=== PATIENT | female | born 1950 | race Caucasian/White ===

== ENCOUNTER → 2016-12-27 | Outpatient (CLI) | payer OTHER ==
[2016-02-29 10:56] VITALS: BP 134/66
[~2016-12-27] MED LIST: PREMPRO 0.625/21 TAB PO
== END ==
LOC: MAMMO 10:00
DX: Z12.31 Encounter for screening mammogram for malignant neoplasm of breast (principal); Z01.419 Encounter for gynecological examination (general) (routine) without abnormal findings
CPT/HCPCS: G0202

== ENCOUNTER → 2017-04-17 | Outpatient (CLI) | payer OTHER ==
[2016-02-29 10:56] VITALS: BP 134/66
== END ==
LOC: LAB 14:21
DX: E78.5 Hyperlipidemia, unspecified (principal)

== ENCOUNTER → 2017-05-22 | Outpatient (CLI) | payer OTHER ==
[~2017-05-22] VITALS: Ht 167.6 cm; Wt 58.2 kg
[~2017-05-22] MED LIST changes: +MULTI-VITAMIN1 EACH PO; +PHARMASSURE V500 MCG PO; +VITAMIN D32000 UNIT PO
[2017-05-22 13:36] VITALS: BP 122/64
[2017-05-22 14:21] VITALS: BP 130/74
== END ==
LOC: AMSURD 11:28
DX: M81.0 Age-related osteoporosis without current pathological fracture (principal)
CPT/HCPCS: J3489

== ENCOUNTER → 2017-12-27 | Outpatient (CLI) | payer OTHER ==
[2017-05-22 14:21] VITALS: BP 130/74
[2017-12-27 15:27] LABS: ALBUMIN 4.2 g/dL (3.5-5.0); BUN/CREATININE RATIO 16.3 (6.0-26.0); CALCIUM 8.9 mg/dL (8.4-10.2); POTASSIUM 3.7 mmol/L (3.6-5.0); TOTAL BILIRUBIN 0.3 mg/dL (0.2-1.3); TOTAL PROTEIN 7.7 g/dL (6.3-8.2)
== END ==
LOC: LAB 14:30
PROVIDERS: Family Medicine
DX: Z00.00 Encounter for general adult medical examination without abnormal findings (principal); M81.0 Age-related osteoporosis without current pathological fracture; R53.83 Other fatigue; R50.9 Fever, unspecified

== ENCOUNTER → 2018-01-29 | Day surgery (SDC) | payer OTHER ==
[2017-05-22 14:21] VITALS: BP 130/74
== END ==
LOC: MSO 08:46
DX: K29.50 Unspecified chronic gastritis without bleeding (principal); K29.80 Duodenitis without bleeding; R19.7 Diarrhea, unspecified; Z86.010 Personal history of colon polyps; Z80.0 Family history of malignant neoplasm of digestive organs; F17.210 Nicotine dependence, cigarettes, uncomplicated; F41.9 Anxiety disorder, unspecified; F32.9 Major depressive disorder, single episode, unspecified; Z79.899 Other long term (current) drug therapy
CPT/HCPCS: 00813; A4649; J2704; J3010; J7120

== ENCOUNTER → 2018-01-31 | Outpatient (CLI) | payer OTHER ==
[2017-05-22 14:21] VITALS: BP 130/74
== END ==
LOC: MAMMO 01-17 10:00
DX: Z12.31 Encounter for screening mammogram for malignant neoplasm of breast (principal)

== ENCOUNTER → 2018-04-13 | Outpatient (CLI) | payer OTHER ==
[2017-05-22 14:21] VITALS: BP 130/74
== END ==
LOC: LAB 10:53
DX: N76.0 Acute vaginitis (principal)

== ENCOUNTER → 2018-06-07 | Outpatient (CLI) | payer OTHER ==
[~2018-06-07] VITALS: Ht 167.6 cm; Wt 52.3 kg
[2018-06-07 16:17] VITALS: BP 137/49
[2018-06-07 17:04] VITALS: BP 146/72
== END ==
LOC: AMSURD 15:56
DX: M81.0 Age-related osteoporosis without current pathological fracture (principal); M85.80 Other specified disorders of bone density and structure, unspecified site
CPT/HCPCS: J3489

== ENCOUNTER → 2018-12-10 | Outpatient (CLI) | payer OTHER ==
[2018-06-07 17:04] VITALS: BP 146/72
[2018-12-10 14:59] LABS: EOS % 0.4 % (1.0-5.0); HEMATOCRIT 39.1 % (37.0-47.0); HEMOGLOBIN 12.7 g/dL (12.5-16.0); LYMPH# 1.8 (1.50-4.00); MEAN CELL VOLUME 92 fl (78-100); MEAN CORPUSCULAR HEMOGLOBIN 30 pg (27-31); MEAN CORPUSCULAR HGB CONC 33 g/dL (33-37); MEAN PLATELET VOLUME 10.5 fl (7.4-10.4); MONO # 0.4 (0.20-0.80); NEU # 3.3 (1.40-6.50); PLATELET COUNT 180 K/mm3 (130-400); RED BLOOD COUNT 4.27 M/mm3 (4.10-5.30); RED CELL DISTRIBUTION WIDTH 13.6 % (11.5-14.5); WHITE BLOOD COUNT 5.6 K/mm3 (4.8-10.8)
[2018-12-10 15:09] LABS: ALBUMIN 3.8 g/dL (3.4-4.8); CALCIUM 9.3 mg/dL (8.3-10.5); TOTAL BILIRUBIN 0.3 mg/dL (0.2-1.2); TOTAL PROTEIN 6.3 g/dL (6.2-8.1)
== END ==
LOC: LAB 14:37
PROVIDERS: Family Medicine
DX: Z01.419 Encounter for gynecological examination (general) (routine) without abnormal findings (principal); E55.9 Vitamin D deficiency, unspecified; R53.83 Other fatigue

== ENCOUNTER → 2019-06-07 | Outpatient (CLI) | payer MEDICARE, OTHER ==
[~2019-06-07] VITALS: Ht 165.1 cm; Wt 49.8 kg
[~2019-06-07] MED LIST changes: +ALPRAZOLAM0.25 MG PO; +AMBIEN5 M1 PO; +CURCUMIN95%; +FISH OIL1 IU PO; +NATURE'S BLEND500 M5 PO; +ZOFRAN ODT4 MG PO
[2019-06-07 13:35] VITALS: BP 124/57
== END ==
LOC: AMSURD 13:08
DX: M81.0 Age-related osteoporosis without current pathological fracture (principal)
CPT/HCPCS: J3489

== ENCOUNTER → 2019-06-25 | Outpatient (CLI) | payer MEDICARE, OTHER ==
[2019-06-07 13:35] VITALS: BP 124/57
== END ==
LOC: RAD 10:58
DX: M50.30 Other cervical disc degeneration, unspecified cervical region (principal); R42 Dizziness and giddiness

== ENCOUNTER → 2020-01-06 | Outpatient (CLI) | payer MEDICARE, OTHER ==
[2019-06-07 13:35] VITALS: BP 124/57
[2020-01-06 16:43] LABS: EOS # 0.1 (0.04-0.40); EOS % 1.4 % (1.0-5.0); HEMATOCRIT 39.1 % (37.0-47.0); HEMOGLOBIN 12.7 g/dL (12.5-16.0); MEAN CELL VOLUME 92 fl (78-100); MEAN CORPUSCULAR HEMOGLOBIN 30 pg (27-31); MEAN CORPUSCULAR HGB CONC 33 g/dL (33-37); MEAN PLATELET VOLUME 9.9 fl (7.4-10.4); MONO # 0.6 (0.20-0.80); PLATELET COUNT 215 K/mm3 (130-400); RED BLOOD COUNT 4.23 M/mm3 (4.10-5.30); RED CELL DISTRIBUTION WIDTH 14.5 % (11.5-14.5); WHITE BLOOD COUNT 5.7 K/mm3 (4.8-10.8)
[2020-01-06 16:50] LABS: POTASSIUM 4.5 mmol/L (3.5-5.1)
[2020-01-06 16:53] LABS: TOTAL PROTEIN 6.9 g/dL (6.2-8.1)
[2020-01-06 16:55] LABS: TOTAL BILIRUBIN 0.2 mg/dL (0.2-1.2)
== END ==
LOC: LAB 16:29
PROVIDERS: Family Medicine
DX: Z00.00 Encounter for general adult medical examination without abnormal findings (principal); E78.2 Mixed hyperlipidemia; E55.9 Vitamin D deficiency, unspecified

== ENCOUNTER → 2020-01-07 | Outpatient (CLI) | payer MEDICARE, OTHER ==
[2019-06-07 13:35] VITALS: BP 124/57
== END ==
LOC: MAMMO 10:44
DX: Z12.31 Encounter for screening mammogram for malignant neoplasm of breast (principal)

== ENCOUNTER → 2020-02-05 | Outpatient (CLI) | payer MEDICARE, OTHER ==
[2019-06-07 13:35] VITALS: BP 124/57
== END ==
LOC: LAB 11:18
DX: N39.0 Urinary tract infection, site not specified (principal)

== ENCOUNTER → 2020-02-14 | Outpatient (CLI) | payer MEDICARE, OTHER ==
[2019-06-07 13:35] VITALS: BP 124/57
[2020-02-14 15:42] LABS: HEMATOCRIT 40.8 % (37.0-47.0); HEMOGLOBIN 13.5 g/dL (12.5-16.0); MEAN PLATELET VOLUME 9.7 fl (7.4-10.4); RED BLOOD COUNT 4.41 M/mm3 (4.10-5.30); RED CELL DISTRIBUTION WIDTH 13.8 % (11.5-14.5); WHITE BLOOD COUNT 7.3 K/mm3 (4.8-10.8)
[2020-02-14 15:51] LABS: POTASSIUM 4.1 mmol/L (3.5-5.1)
[2020-02-14 15:53] LABS: CALCIUM 9.5 mg/dL (8.3-10.5)
== END ==
LOC: LAB 15:30
PROVIDERS: Podiatrist Sports Medicine
DX: G57.61 Lesion of plantar nerve, right lower limb (principal); M79.671 Pain in right foot

== ENCOUNTER → 2020-08-03 | Outpatient (CLI) | payer MEDICARE ==
[2019-06-07 13:35] VITALS: BP 124/57
[2020-08-03 14:50] LABS: EOS % 0.4 % (1.0-5.0); HEMATOCRIT 42.1 % (37.0-47.0); HEMOGLOBIN 13.5 g/dL (12.5-16.0); LYMPH# 1.9 (1.50-4.00); MEAN CELL VOLUME 92 fl (78-100); MEAN CORPUSCULAR HEMOGLOBIN 29 pg (27-31); MEAN CORPUSCULAR HGB CONC 32 g/dL (33-37); MONO # 0.6 (0.20-0.80); NEU # 4.9 (1.40-6.50); PLATELET COUNT 289 K/mm3 (130-400); RED BLOOD COUNT 4.59 M/mm3 (4.10-5.30); RED CELL DISTRIBUTION WIDTH 13.7 % (11.5-14.5); WHITE BLOOD COUNT 7.4 K/mm3 (4.8-10.8)
[2020-08-03 15:01] LABS: ALBUMIN 4.1 g/dL (3.4-4.8); POTASSIUM 4.7 mmol/L (3.5-5.1)
[2020-08-03 15:02] LABS: CALCIUM 9.3 mg/dL (8.3-10.5)
[2020-08-03 15:04] LABS: TOTAL PROTEIN 7.5 g/dL (6.2-8.1)
[2020-08-03 15:06] LABS: TOTAL BILIRUBIN 0.3 mg/dL (0.2-1.2)
== END ==
LOC: LAB 14:17
PROVIDERS: Family Medicine
DX: Z00.00 Encounter for general adult medical examination without abnormal findings (principal); E78.5 Hyperlipidemia, unspecified; M81.0 Age-related osteoporosis without current pathological fracture; G64 Other disorders of peripheral nervous system

== ENCOUNTER → 2020-08-12 | Outpatient (CLI) | payer MEDICARE ==
[~2020-08-12] VITALS: Ht 165.1 cm; Wt 51.8 kg
[2020-08-12 16:20] VITALS: BP 143/75
== END ==
LOC: AMSURD 15:59
DX: M81.0 Age-related osteoporosis without current pathological fracture (principal); J34.89 Other specified disorders of nose and nasal sinuses
CPT/HCPCS: J3489

== ENCOUNTER → 2021-02-01 | Outpatient (CLI) | payer MEDICARE | LOC: LAB 16:09 | PROVIDERS: Family Medicine | DX: R10.9 Unspecified abdominal pain (principal) ==

== ENCOUNTER → 2021-02-02 | Outpatient (CLI) | payer MEDICARE | LOC: RAD 07:30 | DX: R91.8 Other nonspecific abnormal finding of lung field (principal); R59.9 Enlarged lymph nodes, unspecified; R10.9 Unspecified abdominal pain | CPT/HCPCS: Q9967 ==

== ENCOUNTER → 2021-02-11 | Outpatient (CLI) | payer MEDICARE | LOC: RAD 12:54 | DX: C34.90 Malignant neoplasm of unspecified part of unspecified bronchus or lung (principal); R91.8 Other nonspecific abnormal finding of lung field; I67.82 Cerebral ischemia | CPT/HCPCS: A9585 ==

== ENCOUNTER → 2021-06-17 | Outpatient (CLI) | payer MEDICARE | LOC: RAD 17:52 | DX: C34.92 Malignant neoplasm of unspecified part of left bronchus or lung (principal) | CPT/HCPCS: A9585 ==

== ENCOUNTER → 2021-09-02 | Outpatient (CLI) | payer MEDICARE ==
[~2021-09-02] VITALS: Ht 165.1 cm; Wt 49.1 kg
[2021-09-02 13:30] VITALS: BP 134/65
== END ==
LOC: AMSURD 07:25
DX: Z51.81 Encounter for therapeutic drug level monitoring (principal)
CPT/HCPCS: J1644; J3489